=== PATIENT | male | born 1995 | race Two or more races ===

== ENCOUNTER 2019-10-14 16:31 | Emergency (ER) | payer BC, MEDICAID, OTHER ==
[~2019-10-14] VITALS: Ht 177.8 cm; Wt 108.9 kg
[2019-10-14 17:18] LABS: Urine Bacteria NONE SEEN /hpf (None Seen); Urine Blood Negative /uL (Negative); Urine Mucus FEW (None Seen); Urine Specific Gravity 1.023 (1.001-1.035); Urine WBC 2 /hpf (0 - 3)
[2019-10-14 17:26] LABS: Alcohol, Urine < 3.0 mg/dL (0-5); Amphetamine Screen, Urine NEGATIVE (NEGATIVE); Barbiturate Scree,Urine NEGATIVE (NEGATIVE); Benzodiazephine Screen, Urine POSITIVE (NEGATIVE); Cannabinoid Screen, Urine POSITIVE (NEGATIVE); Cocaine Screen, Urine NEGATIVE (NEGATIVE); Opiate Scree,Urine NEGATIVE (NEGATIVE); Phencyclidine Screen, Urine NEGATIVE (NEGATIVE)
[2019-10-14 18:09] LABS: Basophils # (auto) 0 10 ^3/uL (0-0.2); Basophils % (auto) 0.4 % (0.0-2.0); Eosinophils # (auto) 0.1 10 ^3/uL (0-0.8); Eosinophils % (auto) 0.8 % (0.0-7.0); Hematocrit 46.7 % (41.0-53.0); Hemoglobin 15.7 g/dL (13.5-17.5); Lymphocytes # (auto) 2.7 10 ^3/uL (0.4-5.4); Lymphocytes % (auto) 27.7 % (10.0-50.0); Mean Corpuscular Hemoglobin 29.6 pg (28.0-32.0); Mean Corpuscular Hgb Conc. 33.5 g/dL (32.0-36.0); Mean Corpuscular Volume 88.4 fL (80.0-100.0); Monocytes # (auto) 0.8 10 ^3/uL (0-1.3); Monocytes % (auto) 8.6 % (0.0-12.0); Neutrophils % (auto) 62.5 % (37.0-80.0); Nucleated Red Blood Cells % 0.1 %; Platelet Count (auto) 193 10^3/uL (140-450); Red Blood Cells 5.29 10^6/uL (4.5-5.90); Red Cell Distribution Width 13.4 % (11.8-14.3); White Blood Cell 9.7 10^3/uL (4.4-10.8)
[2019-10-14 18:29] LABS: Albumin 3.9 g/dL (3.4-5.0); Anion Gap 5 (5-15); BUN/Creatinine Ratio 12.2; Blood Urea Nitrogen 10 mg/dL (7-18); Calcium 8.7 mg/dL (8.5-10.1); Carbon Dioxide 26 mmol/L (21-32); Chloride 107 mmol/L (98-107); GFR African American 148 mL/min; GFR Non-African American 123 mL/min; Glucose 93 mg/dL (74-106); Potassium 4.4 mmol/L (3.5-5.1); Sodium 138 mmol/L (136-145)
[2019-10-14 18:40] LABS: Alanine Aminotransferase 53 U/L (16-61); Alkaline Phosphatase 122 U/L (45-117); Aspartate Aminotransferase 29 U/L (15-37); Bilirubin, Total 0.7 mg/dL (0.2-1.0); Total Protein 7.6 g/dL (6.4-8.2)
[2019-10-14 19:24] VITALS: BP 122/60
== END 2019-10-14 19:20 | disposition home or self-care (01) ==
LOC: ER 16:31
DX: F41.9 Anxiety disorder, unspecified (principal); E86.0 Dehydration; R07.89 Other chest pain; F12.10 Cannabis abuse, uncomplicated
CPT/HCPCS: 36415; 71046; 80053; 80307; 81001; 84443; 84484; 85025

== ENCOUNTER 2024-01-04 05:08 | Emergency (ER) | payer BC, MEDICAID ==
[~2024-01-04] VITALS: Ht 177.8 cm; Wt 122.7 kg
[2024-01-04 05:31] VITALS: BP 130/88; PULSE 98; RESP 16; O2SAT 96
[2024-01-04 08:02] VITALS: TEMP 98.2
[2024-01-04] MEDS: IBUPROFEN 600 MG TAB PO ONE (08:02)
[2024-01-04] MEDS ORDERED: CEPH500C PO (08:09)
== END 2024-01-04 08:15 | disposition home or self-care (01) ==
LOC: ER 05:08
DX: S01.01XA Laceration without foreign body of scalp, initial encounter (principal); F41.9 Anxiety disorder, unspecified; F12.90 Cannabis use, unspecified, uncomplicated; Z88.2 Allergy status to sulfonamides; Y04.8XXA Assault by other bodily force, initial encounter; Y93.89 Activity, other specified; Y92.89 Other specified places as the place of occurrence of the external cause; Y99.8 Other external cause status
CPT/HCPCS: 12002

== ENCOUNTER 2024-01-06 00:25 | Emergency (ER) | payer BC ==
[~2024-01-06] VITALS: Ht 180.3 cm; Wt 120.5 kg
[~2024-01-06 00:25] MED LIST: CEPH500C PO
[2024-01-06 00:42] VITALS: BP 143/85; PULSE 74; RESP 18; TEMP 97.7; O2SAT 97
[2024-01-06] MEDS ORDERED: IBUP-1456 PO (02:20)
== END 2024-01-06 02:32 | disposition home or self-care (01) ==
LOC: ER 00:25
DX: S01.01XS Laceration without foreign body of scalp, sequela (principal); F41.9 Anxiety disorder, unspecified; F12.90 Cannabis use, unspecified, uncomplicated; X58.XXXS Exposure to other specified factors, sequela
CPT/HCPCS: 70450

== ENCOUNTER 2024-05-11 04:30 | Inpatient (IN) | payer BC ==
[~2024-05-11] VITALS: Ht 177.8 cm; Wt 109.0 kg
[~2024-05-11 04:30] MED LIST changes: +IBUP-1456 PO
--- NOTE | 2024-05-11 04:47 | ED.PDOC ---
History of Present Illness HPI Comments 28-year-old male with PMHx Anxiety presents with a chief complaint of chest pain x 1 hour. Patient states that his pain is localized to his left chest wall, radiates down his left arm, describes as sharp/tingling, and rates the pain a 8/10. Patient states that he was smoking cigarettes and drinking alcohol when onset of symptoms began. Patient denies having chest pain like this before. No other symptoms or modifying factors present at this time. Chief Complaint: Chest Pain Time Seen by MD: 04:40 Primary Care Provider: UNKNOWN Reviewed Notes: Medications, Allergies Allergies: Coded Allergies: Sulfamethoxazole w/Trimethoprim (Verified Allergy, Mild, 02/18/10) Home Meds Active Scripts Ibuprofen (Ibuprofen) 800 Mg Tab, 1 TAB PO TID PRN, #30 TAB 0 Refills Prov:KARMEN SILVA 01/06/24 Cephalexin Monohydrate (Cephalexin) 500 Mg Cap, 1 CAP PO QID for 5 Days, #20 CAP 0 Refills Prov:ALYSSA JUAREZ CLINICAL CYTOGENETICS DIRECTOR 01/04/24 Information Source: Patient Mode of Arrival: Ambulatory Severity: Moderate Timing: Hours Duration: Since onset Prehospital treatment: None Vital Signs Vital Signs Date Time Temp Pulse Resp B/P (MAP) Pulse Ox O2 Delivery O2 Flow Rate FiO2 05/11/24 04:39 97.5 99 18 145/88 (107) 95 Physical Exam General: Awake, alert and oriented. No acute distress. Skin: Skin in warm, dry and intact. Appropriate color for ethnicity. Nailbeds pink with no cyanosis. HEENT: The head is normocephalic and atraumatic. Conjunctivae are clear without exudates or hemorrhage. Sclera is non-icteric. EOM are intact. No signs of nystagmus. Eyelids are normal in appearance without swelling or lesions. Oral mucosa is pink and moist Neck: The neck is supple with normal range of motion. No JVD. Cardiac: Heart rate and rhythm are normal. No murmurs, gallops, or rubs are auscultated. Respiratory: No signs of respiratory distress. Lung sounds are clear in all lo bes bilaterally without rales, ronchi, or wheezes. Abdominal: Abdomen is soft, non-tender without distention. Bowel sounds are present and normoactive in all four quadrants. Extremities: Upper and lower extremities are atraumatic in appearance without d eformity or edema. Neurological: The patient is awake, alert and oriented to person, place, and time with normal speech. Speech is clear. There is no facial asymmetry. Psychiatric: Appropriate mood and affect. Good judgement and insight. No visual or auditory hallucinations. Review of Systems: REVIEW OF SYSTEMS: No fever, no chills, or fatigue HEENT: No sore throat, no earache, no congestion, no neck pain. Cardiac: Positive chest pain. No palpitations. Lungs: No shortness of breath, no cough. GI: No nausea, no vomiting, no diarrhea, no constipation, no abdominal pain : No dysuria, frequency, or urgency. No hematuria. Musculoskeletal: No joint pain , no joint swelling, no extremity edema. Skin: No rash, no itching. Neuro: No headache, no dizziness, no weakness Past Medical History PAST MEDICAL HISTORY: Anxiety Surgical History: Denies all surgeries Family History Family History: Unknown Social History Smoker: Cigarettes Alcohol: Heavy Drugs: Marijuana Lives In: Home Was a procedure done? Was a procedure done?: No EKG EKG : Comments EKG 4:37 a.m. sinus rhythm, rate 97, QTC 444, QRS 80 no STEMI Differential Dx Considerations may include: Differential diagnoses considered include acute ischemic coronary syndrome, aortic dissection, cardiac tamponade, mediastinitis, pulmonary embolus, pneumothorax, tension pneumothorax, esophageal rupture, coronary artery vasospasm, myocarditis, pericarditis, pneumonia, pulmonary edema, esophageal tear, pancreatitis, aortic stenosis, dilated cardiomyopathy, hypertrophic cardiomyopathy, mitral valve prolapse, malignancy, pleuritis, pneumomediastinum, primary pulmonary hypertension, cholecystitis, esophageal spasm, esophagus, gastritis, GERD, peptic ulcer disease, costochondritis, fibromyalgia, rib fracture, herpes zoster, radicular syndromes, thoracic outlet syndrome, somatization. X-Ray, Labs, Meds, VS Vital Signs Date Time Temp Pulse Resp B/P (MAP) Pulse Ox O2 Delivery O2 Flow Rate FiO2 05/11/24 04:39 97.5 99 18 145/88 (107) 95 05/11/24 04:37 97 Lab Test 05/11/24 04:41 Range/Units White Blood Count 10.1 4.4-10.8 10^3/uL Red Blood Count 5.01 4.5-5.90 10^6/uL Hemoglobin 15.6 13.5-17.5 g/dL Hematocrit 45.2 41.0-53.0 % Mean Corpuscular Volume 90.2 80.0-100.0 fL Mean Corpuscular Hemoglobin 31.1 28.0-32.0 pg Mean Corpuscular Hemoglobin Concent 34.5 32.0-36.0 g/dL Red Cell Distribution Width 13.0 11.8-14.3 % Platelet Count 187 140-450 10^3/uL Mean Platelet Volume 9.9 6.9-10.8 fL Neutrophils (%) (Auto) 62.1 37.0-80.0 % Lymphocytes (%) (Auto) 26.9 10.0-50.0 % Monocytes (%) (Auto) 9.2 0.0-12.0 % Eosinophils (%) (Auto) 1.1 0.0-7.0 % Basophils (%) (Auto) 0.7 0.0-2.0 % Neutrophils # (Auto) 6.3 1.6-8.6 10 ^3/uL Lymphocytes # (Auto) 2.7 0.4-5.4 10 ^3/uL Monocytes # (Auto) 0.9 0-1.3 10 ^3/uL Eosinophils # (Auto) 0.1 0-0.8 10 ^3/uL Basophils # (Auto) 0.1 0-0.2 10 ^3/uL Nucleated Red Blood Cells 0.1 % Sodium Level 139 136-145 mmol/L Potassium Level 3.3 L 3.5-5.1 mmol/L Chloride Level 107 98-107 mmol/L Carbon Dioxide Level 24 20-31 mmol/L Anion Gap 8 5-15 Blood Urea Nitrogen 10 9-23 mg/dL Creatinine 1.02 0.700-1.30 mg/dL Glomerular Filtration Rate Calc 102 >90 mL/min BUN/Creatinine Ratio 9.8 L 10.0-20.0 Serum Glucose 131 H 74-106 mg/dL Calcium Level 9.3 8.7-10.4 mg/dL Total Bilirubin 0.7 0.2-1.0 mg/dL Aspartate Amino Transferase (AST) 25 13-40 U/L Alanine Aminotransferase (ALT) 51 H 7-40 U/L Alkaline Phosphatase 164 H 46-116 U/L Troponin I High Sensitivity 3 L </=54 ng/L Total Protein 7.1 5.7-8.2 g/dL Albumin 4.4 3.2-4.8 g/dL Time of 1ST Reevaluation: 05:10 Reevaluation 1ST: Unchanged Patient Education/Counseling: Diagnosis, Treatment, Prognosis Family Education/Counseling: No Family Present Departure 1 Departure Time of Disposition: 05:34 Impression: Primary Impression: Chest pain Disposition: 30 STILL A PATIENT Condition: Stable Comments 28-year-old male who presents to the emergency department with chest pain onset 1 hour prior to arrival. Signed out to oncoming provider pending lab, imaging, repeat troponin and EKG results. Critical Care Note Critical Care Time?: No Stability Stability form required: No I personally scribed for ZI RIVERA MD ([email or web address]) on 05/11/24 at 04:47. Electronically submitted by Cam Oro ([email or web address]). ZI RIVERA MD May 11, 2024 04:47
[2024-05-11 05:01] LABS: Basophils # (auto) 0.1 10 ^3/uL (0-0.2); Basophils % (auto) 0.7 % (0.0-2.0); Eosinophils # (auto) 0.1 10 ^3/uL (0-0.8); Eosinophils % (auto) 1.1 % (0.0-7.0); Hematocrit 45.2 % (41.0-53.0); Hemoglobin 15.6 g/dL (13.5-17.5); Lymphocytes # (auto) 2.7 10 ^3/uL (0.4-5.4); Lymphocytes % (auto) 26.9 % (10.0-50.0); Mean Corpuscular Hemoglobin 31.1 pg (28.0-32.0); Mean Corpuscular Hgb Conc. 34.5 g/dL (32.0-36.0); Mean Corpuscular Volume 90.2 fL (80.0-100.0); Monocytes # (auto) 0.9 10 ^3/uL (0-1.3); Monocytes % (auto) 9.2 % (0.0-12.0); Neutrophils # (auto) 6.3 10 ^3/uL (1.6-8.6); Neutrophils % (auto) 62.1 % (37.0-80.0); Nucleated Red Blood Cells % 0.1 %; Platelet Count (auto) 187 10^3/uL (140-450); Red Blood Cells 5.01 10^6/uL (4.5-5.90); White Blood Cell 10.1 10^3/uL (4.4-10.8)
--- NOTE | 2024-05-11 05:01 | DVH ---
CHEST RADIOGRAPH Indication: cp Technique: Single frontal view of the chest was obtained Comparison: None IMPRESSION: Heartt is normal in size per the lungs appear clear without focal airspace opacity, effusion, pneumot horax.
[2024-05-11 05:18] LABS: Albumin 4.4 g/dL (3.2-4.8); Anion Gap 8 (5-15); Aspartate Aminotransferase 25 U/L (13-40); BUN/Creatinine Ratio 9.8 (10.0-20.0); Blood Urea Nitrogen 10 mg/dL (9-23); Calcium 9.3 mg/dL (8.7-10.4); Carbon Dioxide 24 mmol/L (20-31); Chloride 107 mmol/L (98-107); Sodium 139 mmol/L (136-145)
[2024-05-11 05:19] LABS: Bilirubin, Total 0.7 mg/dL (0.2-1.0); Total Protein 7.1 g/dL (5.7-8.2)
[2024-05-11 05:30] LABS: Alanine Aminotransferase 51 U/L (7-40); Alkaline Phosphatase 164 U/L (46-116); Glucose 131 mg/dL (74-106); Potassium 3.3 mmol/L (3.5-5.1)
[2024-05-11 05:40] VITALS: BP 125/71; RESP 18; TEMP 98.1; O2SAT 97
[2024-05-11] MEDS: ASPirin 81 mg TAB PO ONE (05:42)
[2024-05-11 06:37] VITALS: PULSE 77
[2024-05-11] MEDS ORDERED: MORPHINE SULFATE INJ 2 MG/ml SYRG IV PRN (09:00)
[2024-05-11] MEDS ORDERED: LORazepam 0.5 MG TAB PO PRN (09:00)
[2024-05-11] MEDS ORDERED: NITROGLYCERIN 0.4 MG SL TAB SL PRN ×2 (09:00)
[2024-05-11] MEDS ORDERED: POTASSIUM CHL 20 Meq TABLET PO ONE (09:00)
[2024-05-11] MEDS ORDERED: ONDANSETRON HCL 4 MG/2 ML VIAL IV PRN (09:00)
[2024-05-11] MEDS ORDERED: MAALOX PLUS or MAALOX 30 ML PO ONE (09:00)
[2024-05-11] MEDS ORDERED: MORPHINE SULFATE 4 MG/ML SYR/VIAL IV PRN (09:00)
[2024-05-11] MEDS ORDERED: ACETAMINOPHEN 325 MG TAB PO PRN (09:00)
--- NOTE | 2024-05-11 09:37 | DVHHP2 ---
History of Present Illness Reason for Visit: chest pain History of Present Illness Troy Martinez is a 28-year-old male with past medical history of tib- fib fracture who presents to the ED today with anxiety and chest pain. Patient reports that he was at his home with his friend drinking beers and smoking cigarettes when [id number] midnight and 1:00 a.m. he suddenly fell anxious and stated that the chest pain came shortly afterwards radiated to his left arm and caused some numbness. States that the pain was around out of 01/07 which brought him to the hospital. Patient reports that he has not had this happen before. He reports that his maternal side has a history of strokes, heart attacks, high blood pressure, and cancer. Patient denies shortness of breath, abdominal pain, lightheadedness, dizziness, weakness, fever, chills, and headache. Past Surgical History tib/fib fx Family History: Cancer, Hypertension, Other (heart attacls and strokes maternal side) Smoke: <1 pack per day ALCOHOL: occassional Drugs: None Lives: with Family Domestic Violence: Neg Review of Systems Constitutional: No: Fever, Chills, Sweats, Weakness, Malaise, Other Eyes: No: Pain, Vision change, Conjunctivae inflammation, Eyelid inflammation, Other, Redness ENT: No: Ear pain, Ear discharge, Nose pain, Nose discharge, Nose congestion, Mouth pain, Mouth swelling, Throat pain, Throat swelling, Other Respiratory: No: Cough, Dry, Shortness of breath, SOB with excertion, Wheezing, Hemoptysis, Pleuritic Pain, Sputum, Wheezing, Other Cardiovascular: Chest Pain; No: Palpitations, Orthopnea, Paroxysmal Noc. Dyspnea, Edema, Lt Headedness, Other Gastrointestinal: No: Nausea, Vomiting, Abdominal Pain, Diarrhea, Constipation, Melena, Hematochezia, Other Genitourinary: No Dysuria, No Frequency, No Incontinence, No Hematuria, No Retention, No Other Musculoskeletal: arm pain; No: other, neck pain, shoulder pain, back pain, hand pain, leg pain, foot pain Skin: No: Rash, Lesions, Jaundice, Bruising, Other Neurological: No: Weakness, Numbness, Incoordination, Change in speech, Confusion, Seizures, Other Allergies: Coded Allergies: Sulfamethoxazole w/Trimethoprim (Verified Allergy, Mild, 02/18/10) Medications Current Medications Medications Dose Ordered Sig/Vinicius Route Start Time Stop Time Status Last Admin Dose Admin Aspirin 81 mg DAILY PO 05/11/24 10:00 Atorvastatin Calcium 40 mg HS PO 05/11/24 22:00 Acetaminophen 650 mg Q6HP PRN PO 05/11/24 09:00 Lorazepam 0.5 mg Q6HP PRN PO 05/11/24 09:00 Docusate Sodium 100 mg DAILY PO 05/11/24 10:00 Ondansetron HCl 4 mg Q4HP PRN IV 05/11/24 09:00 Nitroglycerin 0.4 mg Q5MINP PRN SL 05/11/24 09:00 Morphine Sulfate 2 mg Q30M PRN IV 05/11/24 09:00 Exam Vital Signs Vital Signs Date Time Temp Pulse Resp B/P (MAP) Pulse Ox O2 Delivery O2 Flow Rate FiO2 05/11/24 06:37 77 05/11/24 05:40 98.1 18 125/71 (89) 97 98.1 General Appearance: Alert, Oriented X3, Cooperative, No acute distress HEENT: Atraumatic, PERRLA, EOMI, Mucous membr. moist/pink Respiratory: Clear to auscultation, Normal air movement Cardiovascular: Regular rate, Normal S1, Normal S2, No murmurs Abdominal: Normal bowel sounds, Soft, No tenderness, No hepatospenomegaly, No masses Extremities: No clubbing, No cyanosis, No edema, Normal pulses, No tenderness/swelling Skin: No rashes, No breakdown, No significant lesion Neuro: Normal gait, Normal speech, Strength at 5/5 X4 ext, Normal tone, Sensation intact, Cranial nerves 3-12 NL, Reflexes 2+ Psych/Mental Status: Mental status NL, Mood NL Labs/Xrays Labs Test 05/11/24 05:43 05/11/24 04:41 Range/Units Troponin I High Sensitivity 3 L </=54 ng/L White Blood Count 10.1 4.4-10.8 10^3/uL Red Blood Count 5.01 4.5-5.90 10^6/uL Hemoglobin 15.6 13.5-17.5 g/dL Hematocrit 45.2 41.0-53.0 % Mean Corpuscular Volume 90.2 80.0-100.0 fL Mean Corpuscular Hemoglobin 31.1 28.0-32.0 pg Mean Corpuscular Hemoglobin Concent 34.5 32.0-36.0 g/dL Red Cell Distribution Width 13.0 11.8-14.3 % Platelet Count 187 140-450 10^3/uL Mean Platelet Volume 9.9 6.9-10.8 fL Neutrophils (%) (Auto) 62.1 37.0-80.0 % Lymphocytes (%) (Auto) 26.9 10.0-50.0 % Monocytes (%) (Auto) 9.2 0.0-12.0 % Eosinophils (%) (Auto) 1.1 0.0-7.0 % Basophils (%) (Auto) 0.7 0.0-2.0 % Neutrophils # (Auto) 6.3 1.6-8.6 10 ^3/uL Lymphocytes # (Auto) 2.7 0.4-5.4 10 ^3/uL Monocytes # (Auto) 0.9 0-1.3 10 ^3/uL Eosinophils # (Auto) 0.1 0-0.8 10 ^3/uL Basophils # (Auto) 0.1 0-0.2 10 ^3/uL Nucleated Red Blood Cells 0.1 % Sodium Level 139 136-145 mmol/L Potassium Level 3.3 L 3.5-5.1 mmol/L Chloride Level 107 98-107 mmol/L Carbon Dioxide Level 24 20-31 mmol/L Anion Gap 8 5-15 Blood Urea Nitrogen 10 9-23 mg/dL Creatinine 1.02 0.700-1.30 mg/dL Glomerular Filtration Rate Calc 102 >90 mL/min BUN/Creatinine Ratio 9.8 L 10.0-20.0 Serum Glucose 131 H 74-106 mg/dL Calcium Level 9.3 8.7-10.4 mg/dL Total Bilirubin 0.7 0.2-1.0 mg/dL Aspartate Amino Transferase (AST) 25 13-40 U/L Alanine Aminotransferase (ALT) 51 H 7-40 U/L Alkaline Phosphatase 164 H 46-116 U/L Total Protein 7.1 5.7-8.2 g/dL Albumin 4.4 3.2-4.8 g/dL CHEST RADIOGRAPH Indication: cp Technique: Single frontal view of the chest was obtained Comparison: None IMPRESSION: Heartt is normal in size per the lungs appear clear without focal airspace opacity, effusion, pneumothorax. Assessment/Plan Assessment/Plan Assessment/Plan: Atypical chest pain r/o ACS ekg noted cxr noted labs echo acs protocol asa statin ekg am labs am trend trop trop x 2 negative ua uds Anxiety f/u outpatient with PCP - Dr. Slaughter prn ativan FEN/PPX cardiac diet hl replete lytes Patient ambulating no need for dvt ppx Home medications reconciled Discussed plan of care with patient and nurse Admit to tele Plan discussed with: Patient My Orders Orders - NGOZI GREEN BAGMAN/WOMAN Procedure Category Date Status Time Admit ADMIT 05/11/24 Transmitted 08:58 Code Status CODE 05/11/24 Transmitted 08:58 Vital Signs ALBERTO 05/11/24 In Process 08:58 Admissions Manager Rn [facility] 05/11/24 In Process 08:58 Cardiac DIET 05/11/24 Transmitted Diet-2gna,Lofat,Lochol Breakfast Aspirin Tablet PHA 05/11/24 In Process 10:00 Atorvastatin (Lipitor) PHA 05/11/24 In Process 22:00 Acetaminophen Tablet PHA 05/11/24 In Process (Tylenol Tablet) 09:00 Lorazepam Tablet PHA 05/11/24 In Process (Ativan Tablet) 09:00 Docusate Sodium PHA 05/11/24 In Process Capsule (Colace 10:00 Complete Blood Count LAB 05/12/24 Verified 04:00 Comprehensive LAB 05/12/24 Verified Metabolic Panel 04:00 Echo 2d Mode Cardiac US 05/11/24 Logged DOP 08:58 Chest Xray 1 View XY 05/12/24 Logged 06:00 Education - Smoking ALBERTO 05/11/24 In Process Cessation 08:58 Ondansetron Hcl PHA 05/11/24 In Process (Zofran) 09:00 Electrocardigram EKG 05/12/24 Logged 04:00 Troponin-I Hs LAB 05/11/24 Logged 08:58 Cardiac ALBERTO 05/11/24 In Process Rehabilitation - Outpa Nitroglycerin PHA 05/11/24 In Process Sublingual (Ntrostat 09:00 Morphine Sulfate PHA 05/11/24 In Process Injection 09:00 Notify Of Changes ALBERTO 05/11/24 In Process From Base 08:58 Data Support Analyst For ALBERTO 05/11/24 In Process 24 Hours 08:58 Emergency Dysrhythmia ALBERTO 05/11/24 In Process Protocol 08:58 Rhythm Strips Once [facility] 05/11/24 In Process Every Shift 08:58 Oxygen By Nasal RT 05/11/24 Transmitted Cannula 08:58 Lipid Panel LAB 05/11/24 Logged 09:07 Thyroid Stimulating LAB 05/11/24 Logged Hormone 09:07 Drug Screen LAB 05/11/24 Logged 09:07 B-Type Natriuretic LAB 05/11/24 Transmitted Peptide 09:19 Magnesium LAB 05/11/24 Transmitted 09:19 Phosphorus LAB 05/11/24 Transmitted 09:19 Date of Service: May 11, 2024 Billing Provider: NGOZI GREEN Common Visit Codes: [id number] INP/OBS CARE (MOD) NGOZI GREEN May 11, 2024 09:37
[2024-05-11] MEDS ORDERED: ASPirin 81 mg TAB PO SCH (10:00)
[2024-05-11] MEDS ORDERED: DOCUSATE SOD 100 MG CAP PO SCH (10:00)
[2024-05-11 10:51] LABS: Magnesium 1.9 mg/dL (1.6-2.6)
[2024-05-11 10:52] LABS: Phosphorus 2.5 mg/dL (2.4-5.1); Triglycerides 70 mg/dL (< 150)
[2024-05-11 10:53] LABS: LDL Cholesterol 85 mg/dL (< 100)
[2024-05-11 10:54] LABS: Cholesterol 152 mg/dL (< 200); HDL Cholesterol 49 mg/dL (40-59)
[2024-05-11] MEDS ORDERED: ATORVASTATIN 20 MG TAB PO SCH (22:00)
== END 2024-05-11 13:39 | disposition left against medical advice (07) | DRG 311 ==
LOC: ER 04:30 → TELE 08:58
DX: I24.9 Acute ischemic heart disease, unspecified (principal); F41.9 Anxiety disorder, unspecified; F17.210 Nicotine dependence, cigarettes, uncomplicated; Z53.29 Procedure and treatment not carried out because of patient's decision for other reasons; Z86.73 Personal history of transient ischemic attack (TIA), and cerebral infarction without residual deficits; Z88.3 Allergy status to other anti-infective agents; Z82.49 Family history of ischemic heart disease and other diseases of the circulatory system
CPT/HCPCS: 36415; 71045; 80053; 80061; 80320; 83735; 83880; 84100; 84443; 84484; 85025; G0378